=== PATIENT | male | born 1960 | race Caucasian/White ===

== ENCOUNTER 2018-03-31 19:01 | Emergency (ER) | payer BC ==
[2018-03-31] MEDS ORDERED: Ketorolac Tromethamine 30 MG/ML VIAL ONE (19:37)
[2018-03-31 19:59] LABS: #Lymphocytes 1.4 thou/uL (1.20-3.40); #Monocytes 1.1 thou/uL (0.11-0.59); #Neutrophils 11.5 thou/uL (1.40-6.50); %Basophils 0.1 % (0.0-1.0); %Eosinophils 0.1 % (0.0-10.0); %Lymphocytes 9.7 % (21.0-51.0); %Monocytes 7.7 % (0.0-10.0); %Neutrophils 82.3 % (42.0-75.0); Hemoglobin 14.6 g/dL (14.0-18.0); Mean Corpuscular HGB CONC 34.5 g/dL (32.0-36.0); Mean Corpuscular Hemoglobin 28.5 pg (27.0-31.0); Mean Corpuscular Volume 82.5 fL (78.0-98.0); Platelet Count 254 thou/uL (130-400); RBC Distribution Width 12.4 % (11.5-14.5); Red Blood Cell (RBC) Count 5.13 mill/uL (4.70-6.10)
[2018-03-31 20:02] LABS: Bilirubin Negative (Negative); Blood, Urine Small (Negative); Clarity CLEAR (Clear); Glucose, Urine (Dipstick) 250 mg/dL (Negative); Leukocyte Negative (Negative); Nitrite Negative (Negative); Protein, Urine (Dipstick) Negative (Neg-Trace); Specific Gravity, Urine 1.014 (1.002-1.036); Urobilinogen 0.2 mg/dL (0.2-1.0); pH, Urine 5.5 (5.0-9.0)
[2018-03-31 20:07] LABS: Bacteria/HPF None Seen HPF (None Seen); Hyaline Casts/LPF 0-3 HYALINE CAST LPF (0-3 Hyaline); RBC/HPF 0-3 HPF (0-3); Squamous Epithelial None Seen HPF (0-3); WBC/HPF 0-3 HPF (0-3)
[2018-03-31 20:22] LABS: Anion Gap 15 mmol/L (10-20); BUN (Urea Nitrogen) 20 mg/dL (8.4-25.7); Calc. Creatinine Clearance 0 mL/min (70-130); Calcium 9.4 mg/dL (7.8-10.44); Carbon Dioxide 22 mmol/L (22-29); Chloride 98 mmol/L (98-107); Estimated GFR-MDRD 64; Glucose 199 mg/dL (70-105); Potassium 4.4 mmol/L (3.5-5.1); Sodium 131 mmol/L (136-145)
[2018-03-31 21:52] LABS: Platelet Count 254 thou/uL (130-400)
[2018-03-31] MEDS ORDERED: Acetaminophen/Codeine 30-300mg Tablet ONE (22:00)
--- NOTE | 2018-03-31 22:20 | RAD ---
RADIOGRAPH ABDOMEN 1 VIEW: DATE: 03/31/18 TIME: 9:19 p.m. HISTORY: 57-year-old male with nephrolithiasis (calculus of right kidney) and right obstructive uropathy. COMPARISON: Noncontrast CT obtained earlier on the same day. No prior KUBs. FINDINGS: The 15 mm calculus in the lower pole of the right kidney is faintly visible on this KUB. The 7 mm mariaelena culus lodged at the right UPJ is very difficult to visualize on this KUB. Colonic bowel gas pattern i s normal. There is complete absence of gas in the small intestine. No evidence of organomegaly. IMPRESSION: 1. Known obstructing calculus at the right ureteropelvic junction is not visible on this plain r adiograph. 2. The larger 15 mm calculus at the lower pole of the right kidney is only faintly visible, due to its large size. 3. These may be uric acid calculi. POS: DAVID
== END 2018-03-31 23:07 | disposition home or self-care (01) ==
LOC: ERS 19:01
DX: N20.0 Calculus of kidney (principal); E11.9 Type 2 diabetes mellitus without complications; I10 Essential (primary) hypertension; Z79.82 Long term (current) use of aspirin; Z79.899 Other long term (current) drug therapy
CPT/HCPCS: 36415; 74018; 80048; 81003; 81015; 85025; 85576; 96361; 96374; J1885

== ENCOUNTER 2018-04-04 05:44 | Day surgery (SDC) | payer BC ==
[2018-04-01 13:46] VITALS: BMI 30.7
[2018-04-04] MEDS ORDERED: Fentanyl 100 MCG/2 ML VIAL ONE (06:53)
[2018-04-04] MEDS ORDERED: Iothalamate Meglumine 60% 50 ML VIAL FS ONE ×2 (07:12→08:07)
[2018-04-04] MEDS ORDERED: Levofloxacin 500 mg/D5W 100 ml Premix Bag ONE (07:25)
--- NOTE | 2018-04-04 07:49 | RAD ---
KUB: Date: 04/04/18 COMPARISON: 03/31/18. HISTORY: Flank pain, preprocedural imaging, history of right-sided renal stone disease. FINDINGS: The bowel gas pattern is nonobstructed. No discrete renal calculus is visualized on either side. IMPRESSION: No calcified renal stone appreciated on this examination. CT demonstrated significant right-sided sean al stone disease on 03/31/18 suggesting that these stones may be composed of uric acid. POS: DAVID
--- NOTE | 2018-04-04 10:38 | OP ---
DATE OF PROCEDURE: 04/04/2018 PREOPERATIVE DIAGNOSIS: Right proximal ureteral stone radiolucent. POSTOPERATIVE DIAGNOSIS: Right proximal ureteral stone radiolucent. PROCEDURE PERFORMED: Cysto, right retrograde, right ESWL. SURGEON: Dr. Isaiah Cartwright. ANESTHETIC: General. ESTIMATED BLOOD LOSS: Not recorded. FINDINGS: There is a 7-8 mm proximal ureteral stone treated with 3000 shocks at maximum kV level of 5 with last 5/500 kV level of 6. The stone did appear to fragment. For this reason, stent was not p laced. OPERATIVE TECHNIQUE: Obtained written and verbal consent from the patient after receiving IV Levaqui n after documenting normal preoperative blood work, he was taken to the operating suite. He was plac ed in supine position on the treatment table. PlexiPulses were placed on his lower extremities and t urned on. He was given a general anesthetic and oral obturator intubation. He was placed in the maxim gary lithotomy position and sterilely prepped and draped for cystoscopy. Cystoscopy was done with a 2 2-Malawian sheath. This was well lubricated and passed under direct vision through the male urethra an d into the bladder with aid of a 30-degree lens and a video camera and monitor. The bladder was fill ed and emptied a number of times and examined with both the 30 and the 70 degree lens. At this point , a 5-Malawian Pollack catheter was brought in and through the scope and placed up the right ureter few centimeters and contrast was injected in a retrograde manner. Filling defect with stone was seen in the proximal ureter. The open-ended catheter was advanced up to just below this and contrast was di sconnected from it and the scope was removed leaving open-ended catheter in. We then rehooked up to 30 mL syringe of contrast to the syringe and then we coupled the patient to the unit. We tried to tr eat him with his legs up in lithotomy position. While doing this, we could not get him in a good pos ition and unfortunately this ureteral catheter also came out, so we returned into the dorsal lithotom y position. We did the cystoscopy and placed a catheter up again in left side and then removed him t o a supine position and then positioned him. So the stone was in the treatment focal point, coupled to the unit and injected contrast periodically, a shockwave therapy was commenced. We stayed at 60 p ulses per minute throughout the whole procedure. We went from the low level up to about level 5 with in about 400 shocks. Stone was below the kidney, so pause was not given. We treated with a total of 3000 shocks, the last level 6 rather for the last 2500 shocks. The stone did appear to fragment int o multiple pieces and for this reason, a stent was not placed. The open-ended catheter was removed. He was awakened and extubated and taken by stretcher to the recovery room.
== END 2018-04-04 11:06 | disposition home or self-care (01) ==
LOC: SDC 05:44
PROVIDERS: ATTEND Urology
PROC: 0TF6XZZ Fragmentation in Right Ureter, External Approach (ICD-10-PCS; principal; 2018-04-04)
DX: N20.1 Calculus of ureter (principal); E11.9 Type 2 diabetes mellitus without complications; I10 Essential (primary) hypertension; Z79.82 Long term (current) use of aspirin; Z79.84 Long term (current) use of oral hypoglycemic drugs; Z79.899 Other long term (current) drug therapy
CPT/HCPCS: 74018; J1956; J3010; Q9961

== ENCOUNTER 2018-04-06 00:24 | Observation (INO) | payer BC ==
[2018-04-06] MEDS ORDERED: Ondansetron ODT 8 MG TAB ONE (00:51)
[2018-04-06 00:57] LABS: #Basophils 0.1 thou/uL (0.0-0.2); #Eosinphils 0.1 thou/uL (0.0-0.7); #Lymphocytes 1.9 thou/uL (1.20-3.40); #Monocytes 1.3 thou/uL (0.11-0.59); #Neutrophils 9.8 thou/uL (1.40-6.50); %Basophils 0.4 % (0.0-1.0); %Lymphocytes 14.5 % (21.0-51.0); %Neutrophils 74.1 % (42.0-75.0); Hemoglobin 13.6 g/dL (14.0-18.0); Mean Corpuscular HGB CONC 33.9 g/dL (32.0-36.0); Mean Corpuscular Hemoglobin 28.5 pg (27.0-31.0); Mean Platelet Volume 7.1 fL (7.4-10.4); Platelet Count 270 thou/uL (130-400); RBC Distribution Width 12.1 % (11.5-14.5); Red Blood Cell (RBC) Count 4.79 mill/uL (4.70-6.10); White Blood Cell (WBC) Count 13.3 thou/uL (4.8-10.8)
[2018-04-06 01:17] LABS: ALT (SGPT) 15 U/L (8-55); AST (SGOT) 17 U/L (5-34); Albumin 4.1 g/dL (3.5-5.0); Alkaline Phosphatase 83 U/L (40-150); Anion Gap 13 mmol/L (10-20); BUN (Urea Nitrogen) 25 mg/dL (8.4-25.7); Bilirubin, Total 0.4 mg/dL (0.2-1.2); Calc. Creatinine Clearance 0 mL/min (70-130); Calcium 9.2 mg/dL (7.8-10.44); Carbon Dioxide 22 mmol/L (22-29); Chloride 100 mmol/L (98-107); Estimated GFR-MDRD 67; Globulin 2.9 g/dL (2.4-3.5); Glucose 175 mg/dL (70-105); Potassium 4.3 mmol/L (3.5-5.1); Sodium 131 mmol/L (136-145)
[2018-04-06 03:01] LABS: Bilirubin Negative (Negative); Blood, Urine Large (Negative); Clarity CLEAR (Clear); Glucose, Urine (Dipstick) 100 mg/dL (Negative); Leukocyte Negative (Negative); Nitrite Negative (Negative); Protein, Urine (Dipstick) Negative (Neg-Trace); Specific Gravity, Urine 1.013 (1.002-1.036); Urobilinogen 0.2 mg/dL (0.2-1.0); pH, Urine 5.5 (5.0-9.0)
[2018-04-06] MEDS ORDERED: Ketorolac Tromethamine 30 MG/ML VIAL ONE (03:14)
[2018-04-06 03:30] LABS: Bacteria/HPF None Seen HPF (None Seen); RBC/HPF 0-3 HPF (0-3); Squamous Epithelial None Seen HPF (0-3); WBC/HPF 0-3 HPF (0-3)
[2018-04-06] MEDS ORDERED: Ondansetron HCl/PF 4 MG/2 ML Vial IVP PRN (05:06)
[2018-04-06] MEDS ORDERED: Dextrose 50% Abboject 50 ML SYRINGE IVP PRN (05:06)
[2018-04-06] MEDS ORDERED: Insulin Regular 300 UNITS/3 ML VIAL SC PRN (05:06)
[2018-04-06] MEDS ORDERED: Ondansetron ODT 4 MG TAB SL PRN (05:06)
[2018-04-06] MEDS ORDERED: Dextrose 5% in Water 1,000 ML IV PRN (05:06)
[2018-04-06] MEDS: Dextrose 5 % And 0.9 % NaCl 1,000 ML IV SCH ×2 (05:28→13:40)
[2018-04-06 07:18] VITALS: BMI 30.3
[2018-04-06] MEDS ORDERED: CEFAZOLIN/Water 2 GM/20 ML SYRINGE ONE (08:57)
[2018-04-06] MEDS ORDERED: Fentanyl 100 MCG/2 ML VIAL ONE (09:00)
--- NOTE | 2018-04-06 09:18 | CT ---
PRELIMINARY REPORT/[facility]/EMERGENTY AFTER-HOURS PROCEDURE CT Abdomen and Pelvis Without Intravenous Contrast CLINICAL HISTORY: 57 years old, male; Pain; Abdominal pain; Flank; Right; Patient HX: Patient presents for evaluation o f flank pain, on the right TECHNIQUE: Axial computed tomography images of the abdomen and pelvis without intravenous contrast. Coronal refo rmatted images were created and reviewed. COMPARISON: No relevant prior studies available. FINDINGS: Lung bases: Unremarkable. No mass. No consolidation. ABDOMEN: Liver: There is diffuse fatty infiltration of the liver. Gallbladder and bile ducts: Unremarkable. No calcified stones. No ductal dilation. Pancreas: Unremarkable. No ductal dilation. Spleen: Unremarkable. No splenomegaly. Adrenals: Unremarkable. No mass. Kidneys and ureters: Simple LEFT renal cyst. Mild RIGHT hydronephrosis with a 1.3 cm RIGHT renal ston e. 2 proximal RIGHT ureteral stones largest measuring 6 mm. The second measuring approximately 3 mm. Additional 2 mm distal LEFT ureteral stones. 2.4 mm RIGHT UVJ stone Stomach and bowel: Unremarkable. No obstruction. No mucosal thickening. PELVIS: Appendix: No findings to suggest acute appendicitis. Bladder: Tiny focus of gas in the bladder likely from prior catheterization. No stones. Reproductive: Unremarkable as visualized. ABDOMEN and PELVIS: Intraperitoneal space: Unremarkable. No free air. No significant fluid collection. Bones/joints: No acute fracture. No dislocation. Soft tissues: Small fat containing umbilical hernia. Vasculature: Unremarkable. No abdominal aortic aneurysm. Lymph nodes: Unremarkable. No enlarged lymph nodes. IMPRESSION: Multiple RIGHT ureteral stones with the largest stone measuring 6 mm in the proximal ureter. Mild RIG HT hydronephrosis. 1.3 cm RIGHT renal stone. Thank you for allowing us to participate in the care of your patient. Dictated and Authenticated by: Pernell Burt MD 04/06/2018 2:01 AM Central Time ([place] & [place]) FINAL REPORT CT ABDOMEN AND PELVIS NONCONTRAST: DATE: 04/06/18. TIME: Performed on an emergency basis at 0112 hours. HISTORY: Right flank pain. Stones. COMPARISON: 03/31/18. FINDINGS: Findings agree with the preliminary report by Dr. Burt from [facility]. Multiple stones with in the proximal right ureter result in obstruction. Additional large nonobstructing right renal calc ulus is confirmed, 1.3 cm. Hepatosteatosis. POS: TPC
[2018-04-06] MEDS ORDERED: Iothalamate Meglumine 60% 50 ML VIAL FS ONE (09:35)
--- NOTE | 2018-04-06 11:23 | RAD ---
RETROGRADE IVP: History: Stent placement. Comparison: None. FINDINGS: Intraprocedure fluoroscopy was provided for Dr. Bach. Fifteen images are submitted. Retrograde opac ification in normal appearing right intra and extrarenal collecting system. There is a right sided ur eteral stent, appropriately positioned. IMPRESSION: Fluoroscopy as above. POS: PPP
[2018-04-06 11:55] VITALS: BP 121/73; TEMP 97.8
[2018-04-06] MEDS ORDERED: Ondansetron HCl/PF 4 MG/2 ML Vial ONE (13:59)
[2018-04-06] MEDS ORDERED: Lidocaine 1% PF 5 ML VIAL ONE (13:59)
[2018-04-06] MEDS ORDERED: PROPOFOL 200 MG/20 ML VIAL ONE (13:59)
[2018-04-06] MEDS ORDERED: Metoclopramide HCl 10 MG/2 ML VIAL ONE (13:59)
--- NOTE | 2018-04-06 18:48 | OP ---
DATE OF PROCEDURE: 04/06/2018 PREOPERATIVE DIAGNOSIS: Right ureteral stones and ureteral colic. POSTOPERATIVE DIAGNOSIS: Right ureteral stones and ureteral colic. PROCEDURE PERFORMED: Cystoscopy, right retrograde, right stent. SURGEON: Isaiah Cartwright M.D. ANESTHESIA: General. ESTIMATED BLOOD LOSS: Minimal. FINDINGS: There was no urethral stricture. There is moderately enlarged prostate. No bladder tumor , foreign body or stone. There was a stone in the right ureteral orifice at the meatus that we knock ed out with a little guidewire. As we placed the guidewire up, few more small stones and some debris came in out after that. His CT scan which was done last night in the ER had shown a couple of stone fragments at the site of his ESWL in the proximal ureter. Another stone fragment at the ureterovesi mariaelena junction is what we saw today and another stone about 4 cm proximal to that which may have also c ome out after we knocked out the distal one. Because the patient will be traveling extensively for t he next 2-3 weeks and because he has had trouble with colic in terms of passing these stones. We damaris t ahead and passed the stent. PROCEDURE IN DETAIL: Obtained written and verbal consent from the patient after receiving IV antibio tics, he was taken to the operating suite. He was placed in the supine position on the treatment tab le. PlexiPulses were placed on his lower extremities and turned on. He was given a general anesthet ic, oral obturator intubation, placed in the dorsal lithotomy position, sterilely prepped and draped. Cystoscopy was performed with a 22 Bruneian sheath as well lubricated, passed under direct vision thr ough the male urethra into the urinary bladder with aid of a video camera and monitor and a 30-degree lens. Bladder was filled and emptied a number of times and examined with 30 and 70-degree lens. A guidewire was brought in and fed up the right ureter. As mentioned, there is a small stone right at the meatus that was knocked out into the bladder after the wire bypassed this stone and went up above it and he had some other small stone fragments and some debris come out. We placed a 5-Bruneian Polla ck catheter about 2 cm up the ureter, removed the wire and filled out the ureter with contrast, it wa s a little bit of tortuosity, probably another filling defect in the distal ureter and some filling d efects at the site of the ESWL. We fed the wire easily up into the renal pelvis, removed the open-en ded catheter and initially passed a 4.8 x 24 cm stent; however, this was not long enough, so we switc h it to 26c 4.8 Bruneian and this was a good size for him. It coiled in renal pelvis and coiled in the bladder when the wire was removed. The bladder was drained and the instruments were removed. He wa s awakened, extubated, and taken by stretcher to the recovery room.
== END 2018-04-06 15:33 | disposition home or self-care (01) ==
LOC: ERS 00:24 → SURG A 03:40
PROVIDERS: ADMIT Urology; ATTEND Urology
PROC: 0T768DZ Dilation of Right Ureter with Intraluminal Device, Via Natural or Artificial Opening Endoscopic (ICD-10-PCS; principal; 2018-04-06)
DX: N20.1 Calculus of ureter (principal); E11.9 Type 2 diabetes mellitus without complications; I10 Essential (primary) hypertension; Z79.82 Long term (current) use of aspirin; Z79.84 Long term (current) use of oral hypoglycemic drugs; Z79.899 Other long term (current) drug therapy; Z88.5 Allergy status to narcotic agent
CPT/HCPCS: 36415; 36416; 74176; 74420; 80053; 81003; 81015; 83690; 85025; 96361; 96374; 96375; 96376; C1758; G0378; J0131; J1885; J2001; J2270; J2405; J2704; J2765; J3010; Q9961

== ENCOUNTER 2018-04-27 08:26 | Day surgery (SDC) | payer BC ==
[2018-04-26 13:35] VITALS: BMI 30.7
[2018-04-27] MEDS ORDERED: CEFAZOLIN/Water 2 GM/20 ML SYRINGE ONE (11:15)
[2018-04-27] MEDS ORDERED: Iothalamate Meglumine 60% 50 ML VIAL FS ONE (11:23)
[2018-04-27] MEDS ORDERED: Fentanyl 100 MCG/2 ML VIAL ONE (11:28)
--- NOTE | 2018-04-27 15:43 | OP ---
DATE OF PROCEDURE: 04/27/2018 PREOPERATIVE DIAGNOSIS: Right renal stone with right ureteral stent. POSTOPERATIVE DIAGNOSIS: Right renal stone with right ureteral stent. PROCEDURE PERFORMED: Right ESWL, cysto, discontinue right stent, right retrograde and replacement of right stent. SURGEON: Dr. Isaiah Cartwright. ANESTHETIC: General. ESTIMATED BLOOD LOSS: Not recorded. FINDINGS: The old stent had already started to partially calcify in its distal coil, but came out ea sily. He had a 1.3 cm right lower pole stone that was treated with 2500 shocks and maximum kV level of 5. It did appear to fragment well. Stent was replaced, a 4.8 x 26 cm without a string attached. OPERATIVE TECHNIQUE: After obtaining written and verbal consent from the patient and after receiving IV antibiotics, he was taken to the operating suite. He was placed in the supine position on the tr eatment table. PlexiPulses were placed on his lower extremities and turned on. He was given a gener al anesthetic, oral obturator intubation. The stone could be seen with the fluoroscopy unit. It was not a densely calcified stone at all, but it could be seen. He was coupled to the lithotripsy unit. The stone was placed in treatment focal point. Shockwave therapy was started. We started a very l ow kV for a couple 100 shocks and a 5-minute pause was given. Then, the kV was slowly brought up to 5. We used fluoroscopy intermittently to document stone fragmentation as well as to reposition as ne cessary. The stone did appear to fragment. After 2500 shocks, he was placed in dorsal lithotomy pos ition and sterilely prepped and draped for cystoscopy. A 22-Sudanese cystoscope was passed under direc t vision through the male urethra into the urinary bladder under the aid of a 30-degree lens and vide o camera monitor. Some blood in the urinary bladder. This was drained and filled and emptied until it cleared. The distal end of the double-J stent had already started to calcify. We grasped with a pair of grasping forceps and remove it intact easily. A guidewire was fed up the right ureter and an open-ended catheter 5 Sudanese was fed over this. Guidewire was removed. Contrast was injected to fi ll out the upper collecting system. We could see a number of stone fragments in the right lower pole . No obvious fragments along the proximal ureter. A wire was placed in the open-ended catheter. Th e open-ended catheter was removed and a stent was placed over the guidewire, pushed up in place with aid of a pusher so its proximal end coiled in the renal pelvis and its distal end coiled in the bladd er when the wire was removed. The patient was then awakened and extubated and taken by stretcher to the recovery room.
== END 2018-04-27 15:40 | disposition home or self-care (01) ==
LOC: SDC 08:26
PROVIDERS: ATTEND Urology
PROC: 0TP98DZ Removal of Intraluminal Device from Ureter, Via Natural or Artificial Opening Endoscopic (ICD-10-PCS; principal; 2018-04-27)
PROC: 0TF3XZZ Fragmentation in Right Kidney Pelvis, External Approach (ICD-10-PCS; principal; 2018-04-27)
PROC: 0T768DZ Dilation of Right Ureter with Intraluminal Device, Via Natural or Artificial Opening Endoscopic (ICD-10-PCS; principal; 2018-04-27)
DX: N20.0 Calculus of kidney (principal); E11.9 Type 2 diabetes mellitus without complications; I10 Essential (primary) hypertension; Z79.82 Long term (current) use of aspirin; Z79.899 Other long term (current) drug therapy; Z79.84 Long term (current) use of oral hypoglycemic drugs
CPT/HCPCS: C1758; J3010; Q9961

== ENCOUNTER 2019-05-05 05:54 | Day surgery (SDC) | payer BC ==
[2019-05-04 09:34] VITALS: BMI 31.1
[2019-05-05 06:45] LABS: #Eosinphils 0.3 thou/uL (0.0-0.7); #Lymphocytes 2.2 thou/uL (1.20-3.40); #Monocytes 0.8 thou/uL (0.11-0.59); #Neutrophils 4.2 thou/uL (1.40-6.50); %Basophils 0.6 % (0.0-1.0); %Eosinophils 4.6 % (0.0-10.0); %Monocytes 10.9 % (0.0-10.0); Hemoglobin 13.8 g/dL (14.0-18.0); Mean Corpuscular HGB CONC 34.3 g/dL (32.0-36.0); Mean Corpuscular Hemoglobin 28.9 pg (27.0-31.0); Mean Corpuscular Volume 84.4 fL (78.0-98.0); Mean Platelet Volume 7.6 fL (7.4-10.4); Platelet Count 220 thou/uL (130-400); RBC Distribution Width 12.6 % (11.5-14.5); Red Blood Cell (RBC) Count 4.79 mill/uL (4.70-6.10); White Blood Cell (WBC) Count 7.6 thou/uL (4.8-10.8)
[2019-05-05 06:47] LABS: Platelet Count 215 thou/uL (130-400)
[2019-05-05] MEDS ORDERED: Fentanyl 100 MCG/2 ML VIAL ONE ×2 (06:48→08:41)
[2019-05-05 06:51] LABS: Prothrombin Time 13.5 SEC (12.0-14.7)
[2019-05-05 06:52] LABS: PTT 28.8 SEC (22.9-36.1)
[2019-05-05] MEDS ORDERED: ceFAZolin Sodium (SDC) 2 GM/100 ML BAG ONE (06:54)
[2019-05-05 07:01] LABS: EPI 130 SEC (67-199)
[2019-05-05 07:03] LABS: Anion Gap 12 mmol/L (10-20); BUN (Urea Nitrogen) 17 mg/dL (8.4-25.7); Calc. Creatinine Clearance 144 mL/min (70-130); Calcium 9.5 mg/dL (7.8-10.44); Carbon Dioxide 24 mmol/L (22-29); Chloride 106 mmol/L (98-107); Estimated GFR-MDRD Greater than 90; Glucose 144 mg/dL (70-105); Potassium 4.2 mmol/L (3.5-5.1); Sodium 138 mmol/L (136-145)
[2019-05-05] MEDS ORDERED: PROPOFOL 20 ML ONE (07:42)
[2019-05-05] MEDS ORDERED: Iothalamate Meglumine 60% 50 ML VIAL FS ONE (07:55)
--- NOTE | 2019-05-05 08:07 | RAD ---
EXAM: XR Abdomen 1 View/KUB PROVIDED CLINICAL HISTORY: Right renal stone COMPARISON: 05/06/[address] abdomen on 03/15/2019 FINDINGS: The ureteral stent seen on prior abdominal radiograph has been removed. A 1.2 cm calcification overli es inferior pole right renal shadow compatible with renal calculus which was noted on CT exam. The left renal shadow is mostly obscured by bowel gas. No additional suspicious calcifications are seen. Bowel gas pattern is nonspecific. Minimal degenerative changes are seen in the spine. IMPRESSION: Right nephrolithiasis.
--- NOTE | 2019-05-05 12:18 | OP ---
DATE OF PROCEDURE: 05/05/2019 PREOPERATIVE DIAGNOSIS: Right lower pole renal stone. POSTOPERATIVE DIAGNOSIS: Right lower pole renal stone. PROCEDURE PERFORMED: Right extracorporeal shock wave lithotripsy. ANESTHESIA: General. ESTIMATED BLOOD LOSS: Not recorded. FINDINGS: There was an 11-mm right lower pole renal stone. We treated it with 2500 shocks at maximum kV levels of 4 to 5. It did appear to fragment well. A stent was placed with a 6-Cymraes x 26 cm right double-J stent. The string was left attached to it. DESCRIPTION OF PROCEDURE: After obtained written and verbal consent from the patient, after receiving some IV Ancef and after documenting normal preoperative blood work and platelet function study and being sure we could see the stone easily on this KUB, he was taken to the operating suite. He was placed in the supine position on the treatment table. PlexiPulses were placed on his lower extremities and turned on. He was given a general anesthetic and oral obturator intubation. He was coupled to the lithotripsy unit. The stone was placed in the treatment focal point and shockwave therapy was started at a very low kV. After a couple of 100 shocks, a 5-minute pause was given. We then restarted the ESWL going up to level 4, keeping him at a rate of 60 per minute, and then we went up to the level 5. The fluoroscopy unit was used intermittently to document stone fragmentation and to reposition as necessary. The stone appeared to fragment well. At the end of the procedure, he was placed in the dorsal lithotomy position and he was sterilely prepped and draped for cystoscopy. Cystoscopy was performed with a 22-Cymraes sheath. This was well lubricated and passed under direct vision through the male urethra and into the urinary bladder with aid of a 30-degree lens and video camera and monitor. The bladder was drained. There were already some stone fragments in the bladder and some blood effluxing from the right ureteral orifice. A 5-Cymraes Pollack catheter was flushed with contrast and placed into the right ureteral orifice about a centimeter up and contrast was injected in a retrograde manner. There was no hydronephrosis. The stone appeared to fragment on the lower pole. A guidewire was fed up into the renal pelvis and the open-ended catheter was removed and then a stent was placed over the guidewire and pushed up into place with aid of a pusher, so that its proximal end coiled in the renal pelvis and its distal end coiled in the bladder when the wire was removed. The bladder was drained. The instruments were removed. The string was cut, so it was not exiting quite so far out of the urethra. He was taken out of the dorsal lithotomy position and awakened and extubated and taken by stretcher to the recovery room. Job ID: [id number]
[2019-05-05] MEDS ORDERED: ePHEDrine 50 MG/ML VIAL ONE (14:07)
[2019-05-05] MEDS ORDERED: PROPOFOL 200 MG/20 ML VIAL ONE (14:07)
[2019-05-05] MEDS ORDERED: Lidocaine 1% PF 5 ML VIAL ONE (14:07)
[2019-05-05] MEDS ORDERED: Ondansetron PF 4 MG/2 ML Vial ONE (14:07)
[2019-05-05] MEDS ORDERED: PHENYLEPHRINE-NS 100 MCG/ML 10 ML SYRINGE ONE (14:07)
== END 2019-05-05 11:37 | disposition home or self-care (01) ==
LOC: SDC 05:54
PROVIDERS: ATTEND Urology
PROC: 0TF3XZZ Fragmentation in Right Kidney Pelvis, External Approach (ICD-10-PCS; principal; 2019-05-05)
DX: N20.0 Calculus of kidney (principal); I10 Essential (primary) hypertension; E11.9 Type 2 diabetes mellitus without complications
CPT/HCPCS: 36415; 74018; 80048; 85025; 85576; 85610; 85730; C1758; J0690; J2704; J3010

== ENCOUNTER 2019-05-25 16:27 | Emergency (ER) | payer BC ==
[2019-05-25 16:58] LABS: #Eosinphils 0.1 thou/uL (0.0-0.7); #Lymphocytes 1.9 thou/uL (1.20-3.40); #Monocytes 1.3 thou/uL (0.11-0.59); #Neutrophils 7.8 thou/uL (1.40-6.50); %Basophils 0.3 % (0.0-1.0); %Eosinophils 1.1 % (0.0-10.0); %Lymphocytes 16.8 % (21.0-51.0); %Monocytes 11.3 % (0.0-10.0); %Neutrophils 70.4 % (42.0-75.0); Hemoglobin 13.4 g/dL (14.0-18.0); Mean Corpuscular HGB CONC 33.5 g/dL (32.0-36.0); Mean Corpuscular Hemoglobin 27.9 pg (27.0-31.0); Mean Corpuscular Volume 83.2 fL (78.0-98.0); Platelet Count 260 thou/uL (130-400); RBC Distribution Width 12.3 % (11.5-14.5); Red Blood Cell (RBC) Count 4.81 mill/uL (4.70-6.10); White Blood Cell (WBC) Count 11.1 thou/uL (4.8-10.8)
[2019-05-25 17:06] LABS: Bilirubin Negative (Negative); Blood, Urine 1+ (Negative); Clarity Clear (Clear); Glucose, Urine (Dipstick) 150 mg/dL (Negative); Leukocyte Negative Leu/uL (Negative); Nitrite Negative (Negative); Protein, Urine (Dipstick) Negative (Neg-Trace); RBC/HPF 0-3 HPF (0-3); Squamous Epithelial None Seen HPF (0-3); Urobilinogen Normal mg/dL (Less than 2); WBC/HPF 0-3 HPF (0-3)
[2019-05-25 17:07] LABS: Bacteria/HPF 1+ HPF (None Seen)
[2019-05-25 17:19] LABS: ALT (SGPT) 15 U/L (8-55); AST (SGOT) 14 U/L (5-34); Alkaline Phosphatase 86 U/L (40-150); Anion Gap 14 mmol/L (10-20); BUN (Urea Nitrogen) 19 mg/dL (8.4-25.7); Bilirubin, Total 0.3 mg/dL (0.2-1.2); Calc. Creatinine Clearance 0 mL/min (70-130); Calcium 9.1 mg/dL (7.8-10.44); Carbon Dioxide 22 mmol/L (22-29); Chloride 102 mmol/L (98-107); Estimated GFR-MDRD 53; Globulin 2.8 g/dL (2.4-3.5); Glucose 216 mg/dL (70-105); Lipase 90 U/L (8-78); Potassium 4.3 mmol/L (3.5-5.1); Protein, Total 6.8 g/dL (6.0-8.3); Sodium 134 mmol/L (136-145)
[2019-05-25] MEDS ORDERED: Ondansetron PF 4 MG/2 ML Vial ONE (17:41)
[2019-05-25] MEDS ORDERED: Morphine 4 MG/ML VIAL ONE (17:41)
[2019-05-25] MEDS ORDERED: ceFAZolin Sodium (SDC) 2 GM/100 ML BAG ONE (18:23)
[2019-05-25] MEDS ORDERED: Iothalamate Meglumine 60% 50 ML VIAL FS ONE ×2 (18:59→19:50)
[2019-05-25] MEDS ORDERED: Fentanyl 100 MCG/2 ML VIAL ONE ×2 (19:14→19:19)
[2019-05-25] MEDS ORDERED: Midazolam HCl 2 mg/2 ml Vial ONE (19:18)
--- NOTE | 2019-05-25 20:13 | RAD ---
XR IVP Retrograde HISTORY: Stent placement. COMPARISON: CT examination of 03/15/2019. FINDINGS: A series of 12 images are presented for interpretation showing placement of a right uretera l stent appears to be in good position. The ureters nondilated. Some filling defects in the proximal right ureter probably air bubbles, there is also suggestion of a filling defect within the r ight renal pelvis possibly are a renal calculus. IMPRESSION: Placement of a right ureteral stent.
[2019-05-25] MEDS ORDERED: Promethazine HCl 25 MG/ML VIAL IM PRN (20:18)
[2019-05-25] MEDS ORDERED: Ondansetron HCl/PF 4 MG/2 ML Vial IVP PRN (20:18)
[2019-05-25] MEDS ORDERED: Promethazine HCl 25 MG/ML VIAL SLOW IVP PRN (20:18)
--- NOTE | 2019-05-26 02:12 | OP ---
DATE OF PROCEDURE: 05/25/2019 PREOPERATIVE DIAGNOSIS: Right ureteral colic. POSTOPERATIVE DIAGNOSIS: Right ureteral colic. PROCEDURES PERFORMED: Cystoscopy, right retrograde, right rigid ureteroscopy, and right stent placement. ANESTHESIA: General. ESTIMATED BLOOD LOSS: Minimal. FINDINGS: He had a proximal ureteral obstruction from what appeared to be probably 2 ureteral stones. It was quite tight, the ureter distal to it appeared normal. I did not see any obvious stones proximal to these 2 and they did not seem terribly large, I would say probably maybe 4 to 5 mm. We went ahead and tried to go up with the ureteral scope. Because of his body habitus, we could only get up about a 3rd of the ureter, so we went ahead and just placed a stent. Hopefully, he will pass these remaining fragments as he has passed a great number since the shockwave. DRAINS PLACED: 6 x 26 Polaris double-J stent. INDICATIONS FOR SURGERY: This is a 58-year-old man who had a very large right renal stone that was treated with shock waves on the 05 of May. It was stented. The stent was removed on the and he has been passing stone fragments, but he has been having some right flank pain and some nausea and vomiting got much worse last couple of days to the point where he really needs to come in. He received some Ancef on-call. DESCRIPTION OF PROCEDURE: After obtained written and verbal consent from the patient, after receiving IV antibiotics, he was taken to the operating suite. He was placed in a supine position on the treatment table. PlexiPulses were placed on his lower extremities and turned on. He was given general anesthetic and oral intubation. He was placed in dorsal lithotomy position, sterilely prepped and draped, and the fluoroscopy unit was placed over his abdomen. It did not appear to be any easily seen stones on the glass blower film. Cystoscopy was performed with a 22-Wolof sheath as well lubricated, passed under direct vision through the male urethra into the urinary bladder with a video camera monitor and 30 degree lens. The bladder was filled and emptied couple times. A [place]il[place] catheter was brought in and contrast was flushed up the right ureteral orifice through this catheter. The lower 2/3 of the ureter appeared normal, couple centimeters below the right UPJ, there was a point of obstruction. We advanced the open-ended catheter up to just below this and injected it, there were 2 little filling defects in this region that did rearrange themselves and then it showed a dilated right renal pelvis and calyceal system. A guidewire was fed across this and then the Guilford catheter was advanced above this. A bit more contrast was injected to fill out this. At this point, the guidewire was placed. The Guilford catheter was removed. We did bring in a small caliber graduated ureteroscope could not get this safely passed the lower 3rd of the ureter because of his body habitus. At this point, the green guidewire was back loaded through the cystoscope and we passed a 6 x 26 Polaris double-J stent over the guidewire, positioned up in place with the pusher, so that its proximal end coiled in the renal pelvis and its distal end coiled in the bladder when the wire was removed. At this point, he was taken out of dorsal lithotomy position, awakened, extubated, and taken by stretcher to recovery room. A string was left attached to the stent. Job ID: [id number]
== END 2019-05-25 18:36 | disposition admitted as inpatient to this hospital (09) ==
LOC: ERS 16:27
DX: N20.1 Calculus of ureter (principal); E11.9 Type 2 diabetes mellitus without complications; I10 Essential (primary) hypertension; Z79.899 Other long term (current) drug therapy; Z79.82 Long term (current) use of aspirin; Z79.84 Long term (current) use of oral hypoglycemic drugs
CPT/HCPCS: 36415; 74420; 80053; 81003; 81015; 83690; 85025; 96374; 96375; C1758; J0690; J2250; J2270; J2405; J3010

== ENCOUNTER 2021-05-24 17:37 | Inpatient (IN) | payer BC, SELFPAY ==
[2021-05-24] MEDS ORDERED: Enoxaparin Sodium 60 MG/0.6 ML SYRINGE SC SCH (23:45)
[2021-05-24] MEDS ORDERED: Ondansetron PF 4 MG/2 ML Vial IVP PRN (23:45)
[2021-05-24] MEDS ORDERED: Acetaminophen 325 MG TAB PO PRN (23:45)
[2021-05-24] MEDS ORDERED: Ondansetron ODT 4 MG TAB PO PRN (23:45)
[2021-05-24] MEDS ORDERED: Acetaminophen 650 MG Suppository PR PRN (23:45)
[2021-05-24] MEDS ORDERED: Aspirin Chewable 81 MG TAB PO SCH (23:59)
[2021-05-25] MEDS ORDERED: Dextrose 5% in Water 1,000 ML IV PRN (00:01)
[2021-05-25] MEDS ORDERED: HumaLOG 300 UNITS/3 ML VIAL SC PRN (00:01)
[2021-05-25] MEDS ORDERED: Dextrose 50% Abboject 50 ML SYRINGE SLOW IVP PRN (00:01)
[2021-05-25 04:16] VITALS: BMI 29.6
[2021-05-25 04:24] LABS: #Eosinphils 0.3 thou/uL (0.0-0.7); #Lymphocytes 2.4 thou/uL (1.20-3.40); #Neutrophils 4.2 thou/uL (1.40-6.50); %Basophils 0.6 % (0.0-1.0); %Eosinophils 3.4 % (0.0-10.0); %Lymphocytes 30.5 % (21.0-51.0); %Monocytes 12.6 % (0.0-10.0); Hemoglobin 13.6 g/dL (14.0-18.0); Mean Corpuscular Hemoglobin 29.5 pg (27.0-31.0); Mean Corpuscular Volume 86.9 fL (78.0-98.0); Mean Platelet Volume 7.9 fL (7.4-10.4); Platelet Count 214 thou/uL (130-400); RBC Distribution Width 12.7 % (11.5-14.5); White Blood Cell (WBC) Count 7.9 thou/uL (4.8-10.8)
[2021-05-25 04:44] LABS: Anion Gap 10 mmol/L (10-20); BUN (Urea Nitrogen) 19 mg/dL (8.4-25.7); Calc. Creatinine Clearance 104 mL/min (70-130); Calcium 9.2 mg/dL (7.8-10.44); Carbon Dioxide 27 mmol/L (22-29); Chloride 102 mmol/L (98-107); Glucose 228 mg/dL (70-105); Potassium 4.2 mmol/L (3.5-5.1); Sodium 135 mmol/L (136-145)
[2021-05-25 05:12] LABS: Troponin I 1.933 ng/mL (< 0.028)
[2021-05-25] MEDS: Aspirin Chewable 81 MG TAB PO SCH (08:50)
[2021-05-25] MEDS ORDERED: Atorvastatin Calcium 40 MG TAB PO SCH (09:00)
[2021-05-25] MEDS ORDERED: Enoxaparin Sodium 80 MG/0.8 ML SYRINGE SC SCH (09:00)
[2021-05-25] MEDS ORDERED: Metoprolol Tartrate 5 MG/5 ML VIAL IVP PRN (10:48)
[2021-05-25 12:08] LABS: Critical Call Chem Troponin I RESULT DECREASING; Troponin I 1.306 ng/mL (< 0.028)
[2021-05-25 17:47] LABS: SARS-CoV-2 PCR by NAA Not Detected (NotDetected)
[2021-05-25] MEDS: HumaLOG 300 UNITS/3 ML VIAL SC PRN (18:19)
[2021-05-25] MEDS: Atorvastatin Calcium 40 MG TAB PO SCH (19:56)
[2021-05-25] MEDS: Enoxaparin Sodium 100 MG/ML SYRINGE SC SCH (19:56)
[2021-05-25] MEDS ORDERED: Enoxaparin Sodium 40 MG/0.4 ML SYRINGE SC SCH (23:46)
[2021-05-26] MEDS: Aspirin Chewable 81 MG TAB PO SCH (07:02)
[2021-05-26] MEDS: Enoxaparin Sodium 100 MG/ML SYRINGE SC SCH (08:09)
[2021-05-26] MEDS ORDERED: Midazolam HCl 2 mg/2 ml Vial ONE (08:44)
[2021-05-26] MEDS ORDERED: Fentanyl 100 MCG/2 ML VIAL ONE (08:44)
[2021-05-26] MEDS ORDERED: Verapamil 5 MG/2 ML VIAL ONE (08:45)
[2021-05-26] MEDS ORDERED: Lidocaine 1% (PF) 30 ML VIAL ONE (08:45)
[2021-05-26] MEDS ORDERED: Heparin 10,000 UNITS/ 10 ML VIAL ONE (08:45)
[2021-05-26] MEDS ORDERED: Nitroglycerin 100MG/250ML BOT 250 ML ONE (08:45)
[2021-05-26] MEDS: HumaLOG 300 UNITS/3 ML VIAL SC PRN ×2 (10:41→16:33)
[2021-05-26] MEDS ORDERED: Communication Order-Pharmacy FS SCH (11:16)
[2021-05-26] MEDS: Nitroglycerin 0.4 MG TAB (25 Tab Bottle) SL PRN ×2 (14:05→16:03)
[2021-05-26] MEDS ORDERED: Nitroglycerin 0.4mg/Hour PATCH TD SCH (16:30)
[2021-05-26] MEDS: Metoprolol Tartrate 25 MG TAB PO SCH (20:46)
[2021-05-26] MEDS: Atorvastatin Calcium 40 MG TAB PO SCH (20:46)
[2021-05-27] MEDS: Metoprolol Tartrate 25 MG TAB PO SCH (05:04)
[2021-05-27] MEDS ORDERED: Albumin 5% 500 ML ONE (06:33)
[2021-05-27] MEDS ORDERED: Midazolam HCl 5 mg/5 ml Vial ONE (06:48)
[2021-05-27] MEDS ORDERED: Fentanyl 250 MCG/5 ML VIAL ONE (06:48)
[2021-05-27] MEDS ORDERED: Dexmedetomidine 200 MCG/2 ML VIAL ONE (06:49)
[2021-05-27] MEDS ORDERED: Heparin 10,000 UNITS/1 ML VIAL 30,000 UNITS in Sodium Chloride 0.9% 1,000 ML FS SCH (07:00)
[2021-05-27] MEDS ORDERED: Midazolam HCl 2 mg/2 ml Vial ONE (07:08)
[2021-05-27] MEDS ORDERED: Heparin 5,000 UNITS/ML VIAL ONE (07:34)
[2021-05-27] MEDS ORDERED: Lidocaine 1% PF 5 ML VIAL ONE (07:34)
[2021-05-27] MEDS ORDERED: Aminocaproic Acid 5 GM/20 ML VIAL ONE (07:34)
[2021-05-27] MEDS ORDERED: PROPOFOL 200 MG/20 ML VIAL ONE (07:34)
[2021-05-27] MEDS ORDERED: Sodium Bicarb 50 MEQ/50 ML Abboject 8.4% SYRINGE ONE (07:34)
[2021-05-27] MEDS ORDERED: Heparin 30,000 units/30 ml VIAL ONE (07:34)
[2021-05-27] MEDS ORDERED: Cardioplegic Soln 1,000 ML BAG ONE (07:34)
[2021-05-27] MEDS ORDERED: Calcium Chloride 1 GM/10 ML Abboject SYRINGE ONE (07:34)
[2021-05-27] MEDS ORDERED: Protamine Sulfate 250 MG/25 ML VIAL ONE (07:34)
[2021-05-27] MEDS ORDERED: Lidocaine 2% PF 100 mg/5 ml Syringe ONE (07:34)
[2021-05-27] MEDS ORDERED: Nitroglycerin 50 MG/250 ML BOT ONE (07:34)
[2021-05-27] MEDS ORDERED: Glycopyrrolate 0.2 MG/ML 5 ML SYRINGE ONE (07:34)
[2021-05-27] MEDS ORDERED: Norepinephrine 4 MG/4 ML VIAL ONE (07:34)
[2021-05-27] MEDS ORDERED: Thrombin 5000 UNITS/5 ML VIAL ONE (07:34)
[2021-05-27] MEDS ORDERED: Magnesium Sulfate 1 GM/2 ML VIAL ONE (07:34)
[2021-05-27] MEDS ORDERED: Vecuronium 10 MG VIAL ONE (07:34)
[2021-05-27] MEDS ORDERED: Papaverine 60 MG/2 ML VIAL ONE (07:34)
[2021-05-27] MEDS ORDERED: Dexamethasone 20 MG/5 ML VIAL ONE (07:34)
[2021-05-27] MEDS ORDERED: Potassium Chloride 60 MEQ/30 ML VIAL ONE (07:34)
[2021-05-27] MEDS ORDERED: Insulin Regular 300 UNITS/3 ML VIAL ONE (08:09)
[2021-05-27] MEDS ORDERED: PHENYLEPHRINE-NS 100 MCG/ML 10 ML SYRINGE ONE (08:31)
[2021-05-27] MEDS ORDERED: hydrALAZINE 20 MG/ML VIAL SLOW IVP PRN (10:16)
[2021-05-27] MEDS ORDERED: HYDROcodone/Acetaminophen 5/325 mg Tablet PO PRN (10:16)
[2021-05-27] MEDS ORDERED: Bisacodyl 5 MG TAB PO PRN (10:16)
[2021-05-27] MEDS ORDERED: niCARdipine 25 MG in Sodium Chloride 0.9% 250 ML 250 ML IVPB PRN (10:16)
[2021-05-27] MEDS ORDERED: Ondansetron PF 4 MG/2 ML Vial IVP PRN (10:16)
[2021-05-27] MEDS ORDERED: DOPamine 400 MG/D5W 250 ML 250 ML IVPB PRN (10:16)
[2021-05-27] MEDS ORDERED: Norepinephrine 8 MG/0.9% NS 250 ML IVPB PRN (10:16)
[2021-05-27] MEDS ORDERED: Post-Op Insulin Drip Protocol IVPB SCH (10:16)
[2021-05-27] MEDS ORDERED: Potassium Chloride 20 MEQ/100 ML PREMIX BAG IVPB PRN (10:16)
[2021-05-27] MEDS ORDERED: Mag-Al 1200 mg/1200 mg/30 ML UDCUP PO PRN (10:16)
[2021-05-27] MEDS ORDERED: Hetastarch 6% 500 ML 500 ML IVPB PRN (10:16)
[2021-05-27] MEDS ORDERED: Promethazine HCl 25 MG/ML VIAL IM PRN (10:16)
[2021-05-27] MEDS ORDERED: Bisacodyl 10 MG SUPP PR PRN (10:16)
[2021-05-27] MEDS ORDERED: Morphine 2 MG/ML VIAL SLOW IVP PRN (10:16)
[2021-05-27] MEDS ORDERED: Nitroglycerin 50 MG/250 ML BOT 250 ML IVPB PRN (10:16)
[2021-05-27] MEDS ORDERED: Fentanyl 100 MCG/2 ML VIAL SLOW IVP PRN (10:16)
[2021-05-27] MEDS ORDERED: Acetaminophen 325 MG TAB PO PRN (10:16)
[2021-05-27] MEDS ORDERED: Guaifenesin DM 100-10/5 ML UDCUP PO PRN (10:16)
[2021-05-27 10:54] LABS: #Eosinphils 0.1 thou/uL (0.0-0.7); #Lymphocytes 1.5 thou/uL (1.20-3.40); #Monocytes 0.8 thou/uL (0.11-0.59); %Basophils 0.1 % (0.0-1.0); %Eosinophils 0.8 % (0.0-10.0); %Lymphocytes 9.8 % (21.0-51.0); %Monocytes 5.2 % (0.0-10.0); %Neutrophils 84.1 % (42.0-75.0); Hemoglobin 13.8 g/dL (14.0-18.0); Mean Corpuscular HGB CONC 35.6 g/dL (32.0-36.0); Mean Corpuscular Hemoglobin 30.8 pg (27.0-31.0); Mean Corpuscular Volume 86.6 fL (78.0-98.0); Mean Platelet Volume 7.6 fL (7.4-10.4); Platelet Count 148 thou/uL (130-400); RBC Distribution Width 12.5 % (11.5-14.5); Red Blood Cell (RBC) Count 4.46 mill/uL (4.70-6.10); White Blood Cell (WBC) Count 15.5 thou/uL (4.8-10.8)
[2021-05-27] MEDS ORDERED: Dextrose 50% Abboject 50 ML SYRINGE SLOW IVP PRN (11:00)
[2021-05-27] MEDS ORDERED: HUMULIN R 100 UNITS in Sodium Chloride 0.9% 100 ML IVPB SCH (11:00)
[2021-05-27] MEDS ORDERED: Dextrose 5% in Water 1,000 ML IV PRN (11:00)
[2021-05-27] MEDS ORDERED: Insulin Regular 300 UNITS/3 ML VIAL SC PRN (11:00)
[2021-05-27 11:08] LABS: INR-International Normal Ratio 1.2; Prothrombin Time 15.3 sec (12.0-14.7)
[2021-05-27 11:09] LABS: PTT 30.5 sec (22.9-36.1)
[2021-05-27 11:14] LABS: Anion Gap 8 mmol/L (10-20); BUN (Urea Nitrogen) 17 mg/dL (8.4-25.7); Calc. Creatinine Clearance 142 mL/min (70-130); Calcium 8.4 mg/dL (7.8-10.44); Carbon Dioxide 24 mmol/L (22-29); Chloride 110 mmol/L (98-107); Glucose 117 mg/dL (70-105); Potassium 4.6 mmol/L (3.5-5.1); Sodium 137 mmol/L (136-145)
[2021-05-27] MEDS: Lactated Ringer's 1,000 ML IV SCH ×2 (11:33→21:04)
[2021-05-27] MEDS: Ketorolac Tromethamine 30 MG/ML VIAL IVP SCH ×3 (11:37→23:06)
[2021-05-27] MEDS: Fentanyl 100 MCG/2 ML VIAL SLOW IVP PRN ×2 (11:57→15:15)
[2021-05-27] MEDS: CEFAZOLIN 2 GM in Premix Bag 1 BAG IVPB SCH ×2 (13:28→21:04)
[2021-05-27 16:07] LABS: Hemoglobin 14.3 g/dL (14.0-18.0)
[2021-05-27 16:23] LABS: Potassium 4.7 mmol/L (3.5-5.1)
[2021-05-27] MEDS: HYDROcodone/Acetaminophen 5/325 mg Tablet PO PRN (16:29)
[2021-05-27] MEDS ORDERED: Nitroglycerin 0.4mg/Hour PATCH TD SCH (17:00)
[2021-05-27] MEDS: Aspirin Chewable 81 MG TAB PO SCH (19:40)
[2021-05-27] MEDS: Famotidine/PF 20 mg/2ml Vial SLOW IVP SCH (20:01)
[2021-05-27] MEDS: Atorvastatin Calcium 40 MG TAB PO SCH (20:01)
[2021-05-28] MEDS: HYDROcodone/Acetaminophen 5/325 mg Tablet PO PRN ×5 (02:10→20:36)
[2021-05-28 04:17] LABS: #Monocytes 1.1 thou/uL (0.11-0.59); %Basophils 0.1 % (0.0-1.0); %Eosinophils 0.1 % (0.0-10.0); %Lymphocytes 6.4 % (21.0-51.0); %Monocytes 7.4 % (0.0-10.0); Hemoglobin 12.2 g/dL (14.0-18.0); Mean Corpuscular HGB CONC 33.6 g/dL (32.0-36.0); Mean Corpuscular Hemoglobin 29.1 pg (27.0-31.0); Mean Corpuscular Volume 86.8 fL (78.0-98.0); Mean Platelet Volume 8.6 fL (7.4-10.4); Platelet Count 169 thou/uL (130-400); RBC Distribution Width 12.4 % (11.5-14.5); Red Blood Cell (RBC) Count 4.17 mill/uL (4.70-6.10); White Blood Cell (WBC) Count 15.1 thou/uL (4.8-10.8)
[2021-05-28 04:40] LABS: Anion Gap 13 mmol/L (10-20); BUN (Urea Nitrogen) 20 mg/dL (8.4-25.7); Calc. Creatinine Clearance 142 mL/min (70-130); Calcium 7.8 mg/dL (7.8-10.44); Carbon Dioxide 22 mmol/L (22-29); Chloride 105 mmol/L (98-107); Glucose 128 mg/dL (70-105); Potassium 3.9 mmol/L (3.5-5.1); Sodium 136 mmol/L (136-145)
[2021-05-28] MEDS: CEFAZOLIN 2 GM in Premix Bag 1 BAG IVPB SCH (06:02)
[2021-05-28] MEDS: Ketorolac Tromethamine 30 MG/ML VIAL IVP SCH ×3 (06:03→18:24)
[2021-05-28] MEDS: Famotidine/PF 20 mg/2ml Vial SLOW IVP SCH (07:34)
[2021-05-28] MEDS: Polyethylene Glycol 3350 17 GM Packet PO SCH (07:35)
[2021-05-28] MEDS ORDERED: Aspirin 325 MG TAB PO SCH (09:00)
[2021-05-28] MEDS ORDERED: Zolpidem Tartrate 5 MG TAB PO PRN (12:19)
[2021-05-28] MEDS ORDERED: Mag-Al 1200 mg/1200 mg/30 ML UDCUP PO PRN (12:19)
[2021-05-28] MEDS ORDERED: Nitroglycerin 0.4 MG TAB (25 Tab Bottle) SL PRN (12:19)
[2021-05-28] MEDS ORDERED: Bisacodyl 10 MG SUPP PR PRN (12:19)
[2021-05-28] MEDS ORDERED: Metoprolol Tartrate 25 MG TAB PO SCH ×3 (13:00→21:00)
[2021-05-28] MEDS ORDERED: Furosemide 40 MG TAB PO SCH ×2 (13:00→16:00)
[2021-05-28] MEDS ORDERED: Dextrose 5% in Water 1,000 ML IV PRN (13:30)
[2021-05-28] MEDS ORDERED: Dextrose 50% Abboject 50 ML SYRINGE SLOW IVP PRN (13:30)
[2021-05-28] MEDS: Atorvastatin Calcium 40 MG TAB PO SCH (20:37)
[2021-05-28] MEDS: Lisinopril 5 MG TAB PO SCH (20:40)
[2021-05-28] MEDS: Insulin Regular 300 UNITS/3 ML VIAL SC PRN (22:11)
[2021-05-29 04:33] LABS: #Eosinphils 0.1 thou/uL (0.0-0.7); #Lymphocytes 2.4 thou/uL (1.20-3.40); #Monocytes 1.4 thou/uL (0.11-0.59); #Neutrophils 7.7 thou/uL (1.40-6.50); %Basophils 0.1 % (0.0-1.0); %Eosinophils 0.6 % (0.0-10.0); %Lymphocytes 20.5 % (21.0-51.0); %Monocytes 11.8 % (0.0-10.0); %Neutrophils 66.9 % (42.0-75.0); Hemoglobin 12.8 g/dL (14.0-18.0); Mean Corpuscular HGB CONC 34.8 g/dL (32.0-36.0); Mean Corpuscular Hemoglobin 30.3 pg (27.0-31.0); Platelet Count 170 thou/uL (130-400); RBC Distribution Width 12.7 % (11.5-14.5); Red Blood Cell (RBC) Count 4.22 mill/uL (4.70-6.10); White Blood Cell (WBC) Count 11.5 thou/uL (4.8-10.8)
[2021-05-29 04:52] LABS: Anion Gap 10 mmol/L (10-20); BUN (Urea Nitrogen) 18 mg/dL (8.4-25.7); Calc. Creatinine Clearance 123 mL/min (70-130); Calcium 8.7 mg/dL (7.8-10.44); Carbon Dioxide 30 mmol/L (22-29); Chloride 105 mmol/L (98-107); Glucose 134 mg/dL (70-105); Potassium 4.6 mmol/L (3.5-5.1); Sodium 140 mmol/L (136-145)
[2021-05-29] MEDS: Ketorolac Tromethamine 30 MG/ML VIAL IVP SCH ×4 (05:52→17:01)
[2021-05-29] MEDS: Lisinopril 5 MG TAB PO SCH ×2 (09:43→21:22)
[2021-05-29] MEDS: Polyethylene Glycol 3350 17 GM Packet PO SCH (09:43)
[2021-05-29] MEDS: Potassium Chloride 10 MEQ TAB PO SCH (09:43)
[2021-05-29] MEDS: Furosemide 40 MG TAB PO SCH (09:44)
[2021-05-29] MEDS: Aspirin 325 mg Enteric Coated Tablet PO SCH (09:44)
[2021-05-29] MEDS: Metoprolol Tartrate 25 MG TAB PO SCH ×2 (09:44→21:22)
[2021-05-29] MEDS: HYDROcodone/Acetaminophen 5/325 mg Tablet PO PRN (09:45)
[2021-05-29] MEDS: Insulin Regular 300 UNITS/3 ML VIAL SC PRN ×3 (11:19→21:23)
[2021-05-29] MEDS: Atorvastatin Calcium 40 MG TAB PO SCH (21:22)
[2021-05-29] MEDS: metFORMIN 500 MG TAB PO SCH (21:22)
[2021-05-30] MEDS: Ketorolac Tromethamine 30 MG/ML VIAL IVP SCH ×3 (00:15→12:10)
[2021-05-30] MEDS: Insulin Regular 300 UNITS/3 ML VIAL SC PRN ×2 (06:41→12:01)
[2021-05-30] MEDS: metFORMIN 500 MG TAB PO SCH (10:02)
[2021-05-30] MEDS: Potassium Chloride 10 MEQ TAB PO SCH (10:03)
[2021-05-30] MEDS: Metoprolol Tartrate 25 MG TAB PO SCH (10:03)
[2021-05-30] MEDS: Aspirin 325 mg Enteric Coated Tablet PO SCH (10:03)
[2021-05-30] MEDS: Lisinopril 5 MG TAB PO SCH (10:03)
[2021-05-30] MEDS: Polyethylene Glycol 3350 17 GM Packet PO SCH (10:04)
[2021-05-30] MEDS: Furosemide 40 MG TAB PO SCH (10:04)
[2021-05-30] MEDS: HYDROcodone/Acetaminophen 5/325 mg Tablet PO PRN (12:09)
[2021-05-30 12:39] VITALS: BP 131/82; TEMP 98.1
[2021-06-03 14:26] LABS: Analyzer IN Cardio OR; Base Excess (BEa) -3.8 mEq/L (-2.0 to +3.0); CO2 Tension 48.9 mmHg (35.0-45.0); Calcium, Ionized (arterial) 1.17 mmol/L (1.12-1.30); Carboxyhemoglobin (COHb) 0.8 gm% (0.0-3.0); Hemoglobin (Hb) 13.3 g/dL (14.0-18.0); O2 Tension (PaO2), arterial 81.5 mmHg (80.0-100.0); Potassium - ABG Lab 4.33 mmol/L (3.70-5.30); pH, Arterial 7.29 (7.35-7.45)
[2021-06-03 14:27] LABS: Actual Bicarbonate (HCO3a) 23.7 mEq/L (22-28); Analyzer IN Cardio OR; Base Excess (BEa) -2.2 mEq/L (-2.0 to +3.0); CO2 Tension 45.5 mmHg (35.0-45.0); Calcium, Ionized (arterial) 1.24 mmol/L (1.12-1.30); Carboxyhemoglobin (COHb) 0.3 gm% (0.0-3.0); Hemoglobin (Hb) 11.1 g/dL (14.0-18.0); O2 Tension (PaO2), arterial 174.8 mmHg (80.0-100.0); Potassium - ABG Lab 4.31 mmol/L (3.70-5.30); pH, Arterial 7.34 (7.35-7.45)
[2021-06-03 14:27] LABS: Analyzer IN Cardio OR; Base Excess (BEa) -2.3 mEq/L (-2.0 to +3.0); Carboxyhemoglobin (COHb) 0.1 gm% (0.0-3.0); Hemoglobin (Hb) 10.6 g/dL (14.0-18.0); O2 Tension (PaO2), arterial 306.5 mmHg (80.0-100.0); Potassium - ABG Lab 4.35 mmol/L (3.70-5.30); pH, Arterial 7.36 (7.35-7.45)
[2021-06-03 14:28] LABS: Actual Bicarbonate (HCO3a) 24.2 mEq/L (22-28); Analyzer IN Cardio OR; Base Excess (BEa) -2.2 mEq/L (-2.0 to +3.0); CO2 Tension 48.8 mmHg (35.0-45.0); Calcium, Ionized (arterial) 0.95 mmol/L (1.12-1.30); Carboxyhemoglobin (COHb) 0.4 gm% (0.0-3.0); Hemoglobin (Hb) 11.5 g/dL (14.0-18.0); O2 Tension (PaO2), arterial 237.2 mmHg (80.0-100.0); Potassium - ABG Lab 4.14 mmol/L (3.70-5.30); pH, Arterial 7.31 (7.35-7.45)
[2021-06-03 14:29] LABS: Actual Bicarbonate (HCO3a) 20.3 mEq/L (22-28); Analyzer IN Cardio OR; Base Excess (BEa) -5.3 mEq/L (-2.0 to +3.0); CO2 Tension 40.2 mmHg (35.0-45.0); Calcium, Ionized (arterial) 1.09 mmol/L (1.12-1.30); Carboxyhemoglobin (COHb) 0.2 gm% (0.0-3.0); Hemoglobin (Hb) 13.3 g/dL (14.0-18.0); O2 Tension (PaO2), arterial 228.4 mmHg (80.0-100.0); Potassium - ABG Lab 4.86 mmol/L (3.70-5.30); pH, Arterial 7.32 (7.35-7.45)
[2021-06-03 14:30] LABS: Actual Bicarbonate (HCO3a) 20.6 mEq/L (22-28); Analyzer IN Cardio OR; Base Excess (BEa) -4.2 mEq/L (-2.0 to +3.0); CO2 Tension 36.9 mmHg (35.0-45.0); Calcium, Ionized (arterial) 1.11 mmol/L (1.12-1.30); Carboxyhemoglobin (COHb) 1.1 gm% (0.0-3.0); Hemoglobin (Hb) 13.8 g/dL (14.0-18.0); O2 Tension (PaO2), arterial 190.7 mmHg (80.0-100.0); Potassium - ABG Lab 4.41 mmol/L (3.70-5.30); Puncture Site Arterial Line; pH, Arterial 7.36 (7.35-7.45)
[2021-06-03 14:31] LABS: Puncture Site Arterial Line
[2021-06-03 14:31] LABS: Puncture Site Arterial Line
[2021-06-03 14:32] LABS: Puncture Site Arterial Line
[2021-06-03 14:32] LABS: Puncture Site Arterial Line
[2021-06-03 14:33] LABS: Puncture Site Arterial Line
== END 2021-05-30 12:45 | disposition home or self-care (01) | DRG 234 ==
LOC: 2NO 17:37 → CCU 05-27 06:58 → 2NO 05-28 14:46
PROVIDERS: ADMIT Internal Medicine; ATTEND Internal Medicine
PROC: 4A023N7 Measurement of Cardiac Sampling and Pressure, Left Heart, Percutaneous Approach (ICD-10-PCS; 2021-05-26)
PROC: B2111ZZ Fluoroscopy of Multiple Coronary Arteries using Low Osmolar Contrast (ICD-10-PCS; 2021-05-26)
PROC: B2151ZZ Fluoroscopy of Left Heart using Low Osmolar Contrast (ICD-10-PCS; 2021-05-26)
PROC: 021109W Bypass Coronary Artery, Two Arteries from Aorta with Autologous Venous Tissue, Open Approach (ICD-10-PCS; principal; 2021-05-27)
PROC: 02100Z9 Bypass Coronary Artery, One Artery from Left Internal Mammary, Open Approach (ICD-10-PCS; 2021-05-27)
PROC: 5A1221Z Performance of Cardiac Output, Continuous (ICD-10-PCS; 2021-05-27)
DX: I21.4 Non-ST elevation (NSTEMI) myocardial infarction (principal); Z20.822 Contact with and (suspected) exposure to COVID-19; I25.10 Atherosclerotic heart disease of native coronary artery without angina pectoris; E11.9 Type 2 diabetes mellitus without complications; I10 Essential (primary) hypertension; E78.5 Hyperlipidemia, unspecified; Z85.528 Personal history of other malignant neoplasm of kidney; Z79.899 Other long term (current) drug therapy; Z79.84 Long term (current) use of oral hypoglycemic drugs; Z87.442 Personal history of urinary calculi; Z90.49 Acquired absence of other specified parts of digestive tract; Z90.5 Acquired absence of kidney
CPT/HCPCS: 36415; 36416; 71045; 80048; 82805; 82947; 84484; 85025; 85610; 85730; 86850; 86900; 86901; 93005; 93010; 93458; 93798; 97139; 99152; J0690; J1100; J1642; J1644; J1650; J1815; J1885; J2001; J2250; J2440; J2704; J2720; J3010; J3370; J3475; J3480; J3490; P9045; S0017; S0028; U0003; U0005